=== PATIENT | female | born 2000 | race Caucasian/White ===

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

== ENCOUNTER → 2020-05-19 | Outpatient (REF) | payer OTHER ==
[~2020-05-19] MED LIST changes: +EPIP0.3I2 IM
[2020-06-19 14:51] LABS: CHLAMYDIA DNA AMPLIFICATION NEGATIVE (NEGATIVE); GC DNA AMPLIFICATION NEGATIVE (NEGATIVE)
== END ==
LOC: M SFHCWAGY 13:19
PROVIDERS: ATTEND Advanced Practice Midwife
DX: Z34.01 Encounter for supervision of normal first pregnancy, first trimester (principal)

== ENCOUNTER → 2020-06-03 | Outpatient (CLI) | payer OTHER | LOC: M PLALAB 11:27 | PROVIDERS: ATTEND Specialist | DX: Z13.79 Encounter for other screening for genetic and chromosomal anomalies (principal) ==

== ENCOUNTER → 2020-06-25 | Outpatient (CLI) | payer OTHER ==
--- NOTE | 2020-07-01 09:38 | REP ---
COMPLETE OBSTETRICAL ULTRASOUND: FINDINGS: Ultrasound examination demonstrates a single live intrauterine in cephalic presentation. Placenta noted anteriorly and grade 1 without placenta previa or abruption. Amniotic fluid volume is normal. The cervix measures 3.5 cm in length and appears closed. No evidence for a nuchal cord. Gestational age by current measurements is 20 weeks 2 days with estimated date of delivery of 11/10/20. heart rate is 140 beats per minute. Estimated weight is 350 grams (75th percentile). Anatomical assessment demonstrate normal cranium, ventricles, choroid plexus, cerebellum, posterior fossa, cisterna magna, facial features, four chamber heart/ventricular outflow tracts, diaphragm, abdominal wall, kidneys, bladder, spine extremities and three vessel cord. Limited evaluation of the stomach. IMPRESSION: Single live intrauterine in cephalic presentation demonstrating appropriate estimated weight. Limited evaluation of the stomach noted. The remainder of the anatomical assessment is complete and normal. MTDD
== END ==
LOC: M WHC 13:46
PROVIDERS: ATTEND Specialist
DX: Z34.82 Encounter for supervision of other normal pregnancy, second trimester (principal); Z3A.20 20 weeks gestation of pregnancy

== ENCOUNTER → 2020-07-15 | Outpatient (CLI) | payer OTHER | LOC: M WHC 14:23 | PROVIDERS: ATTEND Obstetrics & Gynecology | DX: Z3A.22 22 weeks gestation of pregnancy (principal); Z53.9 Procedure and treatment not carried out, unspecified reason ==

== ENCOUNTER → 2020-07-21 | Outpatient (CLI) | payer OTHER ==
--- NOTE | 2020-07-21 15:53 | REP ---
INDICATION: F/U ANATOMY-STOMACH COMPARISON: 06/25/2020 TECHNIQUE: Transabdominal obstetrical ultrasound with color Doppler evaluation. FINDINGS: Examination demonstrates a single live intrauterine in cephalic presentation. motion is identified by technologist. Placenta is noted anterior and grade 1 without evidence for placenta previa or abruption. Amniotic fluid volume is normal. Cervix measures 4.3 cm in length and appears closed. No evidence for nuchal cord. Gestational age by LMP 23 weeks 4 days with KELLIE 11/13/2020. Gestational age by current measurements 23 weeks 3 days with KELLIE 11/14/2020. FHR equals 149 beats per minute. Estimated weight 589 grams (32ndpercentile). Anatomical assessment demonstrates normal structures including cranium, facial profile, heart/ventricular outflow tracts, stomach, abdominal wall, kidneys/bladder and three-vessel cord. IMPRESSION: Single live intrauterine in cephalic presentation demonstrating appropriate interval growth. In conjunction with prior examination anatomical assessment is complete and normal. <Electronically signed by Ke Hopper > 07/21/20 [id number]
== END ==
LOC: M PLAIMG 14:28
PROVIDERS: ATTEND Obstetrics & Gynecology
DX: Z3A.22 22 weeks gestation of pregnancy (principal)

== ENCOUNTER → 2020-08-21 | Outpatient (REF) | payer OTHER ==
[2020-08-21 17:07] LABS: HEMATOCRIT 36.5 % (36.0-47.0); HEMOGLOBIN 12.2 g/dl (12.0-15.5); MEAN CORPUSCULAR HGB CONC 33.4 g/dl (32.0-36.5); MEAN CORPUSCULAR VOLUME 92.9 fl (80.0-96.0); PLATELET COUNT, AUTOMATED 315 10^3/uL (150-450); RED BLOOD COUNT 3.93 10^6/uL (4.00-5.40); WHITE BLOOD COUNT 13.6 10^3/uL (4.0-10.0)
== END ==
LOC: M PLALAB 13:55
PROVIDERS: ATTEND Obstetrics & Gynecology
DX: Z34.92 Encounter for supervision of normal pregnancy, unspecified, second trimester (principal); Z3A.22 22 weeks gestation of pregnancy
CPT/HCPCS: 36415; 82950; 85027; 86850; 86900; 86901; J2790

== ENCOUNTER → 2020-09-22 | Outpatient (CLI) | payer OTHER | LOC: M WHC 13:42 | PROVIDERS: ATTEND Advanced Practice Midwife | DX: Z36.89 Encounter for other specified antenatal screening (principal) ==

== ENCOUNTER → 2020-09-29 | Outpatient (CLI) | payer OTHER ==
--- NOTE | 2020-09-29 13:24 | REP ---
INDICATION: MEASURE SIZE>DATES,GROWTH COMPARISON: 07/21/2020 TECHNIQUE: Transabdominal obstetrical ultrasound with color Doppler evaluation. FINDINGS: Examination demonstrates a single live intrauterine in cephalic presentation. motion is identified by technologist. Placenta is noted anterior and grade 2 without evidence for placenta previa or abruption. Amniotic fluid volume is normal. Cervix measures 3.0 cm in length and appears closed.. Gestational age by LMP 33 weeks 4 days with KELLIE 11/13/2020. Gestational age by current measurements 33 weeks 4 days with KELLIE 11/13/2020. FHR equals 144 beats per minute. BPD: 8.6 cm 34 weeks 4 days HC: 30.2 cm 33 weeks 4 days AC: 29.0 cm 33 weeks 0 days FL: 6.5 cm 33 weeks 3 days HL: 5.8 cm 33 weeks 4 days HC/AC: 1.04 Estimated weight 2168 grams (34thpercentile). IMPRESSION: Single live intrauterine in cephalic presentation demonstrating appropriate estimated weight and growth. <Electronically signed by Ke Hopper > 09/29/20 [id number]
== END ==
LOC: M WHC 12:40
PROVIDERS: ATTEND Obstetrics & Gynecology
DX: Z34.93 Encounter for supervision of normal pregnancy, unspecified, third trimester (principal)

== ENCOUNTER → 2020-10-14 | Outpatient (REF) | payer OTHER | LOC: M SFHCWAGY 17:18 | PROVIDERS: ATTEND Advanced Practice Midwife | DX: Z36.85 Encounter for antenatal screening for Streptococcus B (principal); Z3A.35 35 weeks gestation of pregnancy ==

== ENCOUNTER 2020-11-18 11:17 | Inpatient (IN) | payer OTHER ==
[~2020-11-18] VITALS: Ht 165.1 cm; Wt 115.0 kg
[2020-11-18] VITALS (13 sets, daily range): BP systolic 118–156; BP diastolic 60–92
--- OUTSIDE RECORDS SUMMARY | 2020-11-18 11:22 | CCD ---
Author Author [facility] Organization [facility] Address Unknown Phone Unavailable Care Team Providers Care Molding Utility Worker Name Role Phone Osmany Matos Unavailable PROBLEMS Type Condition ICD9-CM Code [id number] Code Onset Dates Condition S tatus W/U Status Risk SNOMED Code Notes Problem Obesity E66.9 Active confirmed 722490135 Problem Obesity complicating in third trimester O99.213 Active confirmed Problem Supervision of other normal Z34.80 Ac tive confirm 724149988 Problem Obesity complicating in second trimester O99.212 Active confirmed 320191821883 Problem GERD (gastroesophageal reflux disease) K21.9 A ctive confirmed 098225539 ALLERGIES Allergen (clinical drug ingredient) Drug/Non Drug Allergy do cumented on EMR Reaction Allergy Type Onset Date Status Tree nuts Unknown Non Drug Allergy Active Seasonal Unknown Non Drug Allergy Active ENCOUNTERS from 2000 to 2020-11-14 Encounter Location Date Provider Diagnosis [facility] [address] [place] [id number] Nov, Osmany Matos 38 weeks gestation o f Z3A.38 and Obesity affecting in third trimester O99.213 IMMUNIZATIONS Vaccine Route Administration Date Status RHo (D) Immune Globulin 300mcg/1.5mL (RhoGAM) IM Intramuscular D ec 2019 Administered TDAP 0.5mL (Boostrix) IM Intramuscular Sep 22, 2020 Administe red SOCIAL HISTORY Tobacco Use: Social History Observation Description Date Details (start date - stop date) Former Smoker Sex Assigned At : Social History Observation Description Sex Assigned At Unknown Domestic Violence: Question Answer Notes Status: No history of abuse Tobacco Use: Question Answer Notes Are you a: former smoker REASON FOR REFERRAL No Information VITAL SIGNS Weight 254.0 lbs Nov, Weight-kg 115.21 kg Nov, Height 65 in Nov, BMI 42.268 kg/m2 Nov, Blood pressure systolic 118 mm Hg Nov, Blood pressure diastolic 72 mm Hg Nov, MEDICATIONS Medication SIG (Take, Route, Frequency, Duration) Notes Start Da te End Date Status 27-1 MG 1 tablet Orally Once a day Active Omeprazole 40 MG 1 capsule 30 minutes before morning meal Orally Once a day for 30 day(s) Jul, Active PROCEDURES No Information RESULTS No Results REASON FOR VISIT 1WK PN MEDICAL (GENERAL) HISTORY Type Description Date Medical History asthma Medical History anxiety Medical History depression Surgical History wisdom teeth Hospitalization History pneumonia Goals Section No Information Health Concerns No Information MEDICAL EQUIPMENT No Information MENTAL STATUS No Information FUNCTIONAL STATUS No Information ASSESSMENTS Encounter Date Diagnosis Assessment Notes Treatment Notes Treatm ent Clinical Notes Nov, 38 weeks gestation of (ICD-10 - Z3A.38 ) Nov, Obesity affecting in [facility] (ICD-10 - O99.213) PLAN OF TREATMENT No Information Insurance Providers Payer Name Payer Address Payer Phone Insured Name Patient Relati onship to Insured Coverage Start Date Coverage End Date [facility]AN [facility] [address] [facility] [phone] [phone] AMANDA BOUCHER self
--- OUTSIDE RECORDS SUMMARY | 2020-11-18 11:23 | CCD ---
Author Author [facility] Organization [facility] Address Unknown Phone Unavailable Care Team Providers Care Core Java Engineer Name Role Phone Katharine Bennett Unavailable PROBLEMS Type Condition ICD9-CM Code [id number] Code Onset Dates Condition S tatus SNOMED Code Notes Problem GERD (gastroesophageal reflux disease) K21.9 A ctive 176973534 Problem Obesity E66.9 Active 065876399 Problem Supervision of other normal Z34.80 Ac tive 920752104 Problem Obesity complicating in second trimester O99.212 Active 342880481976 ALLERGIES Allergen (clinical drug ingredient) Drug/Non Drug Allergy do cumented on EMR Reaction Allergy Type Onset Date Status Tree nuts Unknown Non Drug Allergy Active Seasonal Unknown Non Drug Allergy Active ENCOUNTERS from 2000 to 2020-08-25 Encounter Location Date Provider Diagnosis [facility] [place] [address] Aug, Katharine Rosariocatalino Obesity complicat ing in second trimester O99.212 and 26 weeks gestation of Z3A.26 IMMUNIZATIONS No Information SOCIAL HISTORY Tobacco Use: Social History Observation Description Date Details (start date - stop date) Current Smoker Sex Assigned At : Social History Observation Description Sex Assigned At Unknown Domestic Violence: Question Answer Notes Status: No history of abuse Tobacco Use: Question Answer Notes Are you a: current smoker How many cigarettes a day do you smoke? 5 or less REASON FOR REFERRAL No Information VITAL SIGNS Weight 230 lbs Aug, Weight-kg 104.33 kg Aug, Height 65 in Aug, BMI 38.274 kg/m2 Aug, Blood pressure systolic 102 mm Hg Aug, Blood pressure diastolic 72 mm Hg 11 Aug, 2020 MEDICATIONS Medication SIG (Take, Route, Frequency, Duration) Notes Start Da te End Date Status 27-1 MG 1 tablet Orally Once a day Active Omeprazole 40 MG 1 capsule 30 minutes before morning meal Orally Once a day for 30 day(s) Jul, Active PROCEDURES No Information RESULTS No Results REASON FOR VISIT 4 WK PN MEDICAL (GENERAL) HISTORY Type Description Date Medical History asthma Medical History anxiety Medical History depression Surgical History wisdom teeth Hospitalization History pneumonia Goals Section No Information Health Concerns No Information MEDICAL EQUIPMENT No Information MENTAL STATUS No Information FUNCTIONAL STATUS No Information ASSESSMENTS Encounter Date Diagnosis Assessment Notes Treatment Notes Treatm ent Clinical Notes Aug, Obesity complicating pregnan cy in second trimester (ICD-10 - O99.212) Aug, 26 weeks gestation of (ICD-10 - Z3A.26 ) PLAN OF TREATMENT Next Appt Details 3-4wks Reason:return ob Provider Name:Katharine Bennett, 2020-09-10 02:40:00 PM, [address] [place], [address], Follow Up:3-4wksreturn ob Insurance Providers Payer Name Payer Address Payer Phone Insured Name Patient Relati onship to Insured Coverage Start Date Coverage End Date [facility] PLAN [facility] [address] [facility] [phone] [phone] AMANDA BOUCHER self
--- OUTSIDE RECORDS SUMMARY | 2020-11-18 11:23 | CCD ---
Author Author [facility] Organization [facility] Address Unknown Phone Unavailable Care Team Providers Care Copy Lathe Tender Name Role Phone Katharine Bennett Unavailable PROBLEMS Type Condition ICD9-CM Code [id number] Code Onset Dates Condition S tatus SNOMED Code Notes Problem GERD (gastroesophageal reflux disease) K21.9 A ctive 290770315 Problem Obesity E66.9 Active 785429404 Problem Supervision of other normal Z34.80 Ac tive 972458281 Problem Obesity complicating in second trimester O99.212 Active 636792250874 ALLERGIES Allergen (clinical drug ingredient) Drug/Non Drug Allergy do cumented on EMR Reaction Allergy Type Onset Date Status Tree nuts Unknown Non Drug Allergy Active Seasonal Unknown Non Drug Allergy Active ENCOUNTERS from 2000 to 2020-09-15 Encounter Location Date Provider Diagnosis [facility] [place] [address] Sep, Katharine Bennett 30 weeks gestatio n of Z3A.30 and Maternal care for anti-D [Rh] antibodies, third trimester, fetus 1 O36.0131 IMMUNIZATIONS Vaccine Route Administration Date Status RHo (D) Immune Globulin 300mcg/1.5mL (RhoGAM) IM Intramuscular D ec 2019 Administered SOCIAL HISTORY Tobacco Use: Social History Observation [...] FOR REFERRAL No Information VITAL SIGNS Weight 236.6 lbs Sep, Weight-kg 107.32 kg Sep, Height 65 in Sep, BMI 39.372 kg/m2 Sep, Blood pressure systolic 108 mm Hg Sep, Blood pressure diastolic 68 mm Hg Sep, MEDICATIONS Medication SIG (Take, Route, Frequency, Duration) Notes Start Da te End Date Status 27-1 MG 1 tablet Orally Once a day Active Omeprazole 40 MG 1 capsule 30 minutes before morning meal Orally Once a day for 30 day(s) Jul, Active PROCEDURES from 2000 to 2020-09-15 Procedure Date Ordered Result Body Site Injection: RhoGAM 300mcg/1.5mL IM (Rho [D] Immune Globulin H uman) 2020-09-10 N/A RESULTS No Results REASON FOR VISIT 4wk pn MEDICAL (GENERAL) HISTORY Type Description Date Medical History asthma Medical History anxiety Medical History depression Surgical History wisdom teeth Hospitalization History pneumonia Goals Section No Information Health Concerns No Information MEDICAL EQUIPMENT No Information MENTAL STATUS No Information FUNCTIONAL STATUS No Information ASSESSMENTS Encounter Date Diagnosis Assessment Notes Treatment Notes Treatm ent Clinical Notes Sep, 30 weeks gestation of (ICD-10 - Z3A.30 ) Sep, Maternal care for anti-D [Rh ] antibodies, third trimester, fetus 1 (ICD-10 - O36.0131) PLAN OF TREATMENT Next Appt Details 2 Weeks Reason:return ob Provider Name:Nanda Lau, 2020-09-22 0 1:20:00 PM, [facility] [place], [address], Follow Up:2 Weeksreturn ob Insurance Providers Payer Name Payer Address Payer Phone Insured Name Patient Relati onship to Insured Coverage Start Date Coverage End Date [facility]AN [facility] [address] [facility] [phone] AMANDA BOUCHER self
--- OUTSIDE RECORDS SUMMARY | 2020-11-18 11:23 | CCD ---
Author Author [facility] Organization [facility] Address Unknown Phone Unavailable Care Team Providers Care Blower Installer Name Role Phone Katharine Bennett Unavailable PROBLEMS Type Condition ICD9-CM Code QAM85-UP Code Onset Dates Condition S tatus W/U Status Risk SNOMED Code Notes Problem Obesity E66.9 Active confirmed 887880113 Problem Obesity complicating in third trimester O99.213 Active confirmed Problem Supervision of other normal Z34.80 Ac tive confirm 065066515 Problem Obesity complicating in second trimester O99.212 Active confirmed 234786185620 Problem GERD (gastroesophageal reflux disease) K21.9 A ctive confirmed 435458447 ALLERGIES Allergen (clinical drug ingredient) Drug/Non Drug Allergy do cumented on EMR Reaction Allergy Type Onset Date Status Tree nuts Unknown Non Drug Allergy Active Seasonal Unknown Non Drug Allergy Active ENCOUNTERS from 2000 to 2020-11-13 Encounter Location Date Provider Diagnosis [facility] [address] [place] [address] Nov, Katharine Bennett IMMUNIZATIONS Vaccine Route Administration Date Status RHo [...] REASON FOR REFERRAL No Information VITAL SIGNS No information MEDICATIONS Medication SIG (Take, Route, Frequency, Duration) Notes Start Da te End Date Status 27-1 MG 1 tablet Orally Once a day Active Omeprazole 40 MG 1 capsule 30 minutes before morning meal Orally Once a day for 30 day(s) Jul, Active PROCEDURES No Information RESULTS No Results REASON FOR VISIT IOL MEDICAL (GENERAL) HISTORY Type Description Date Medical History asthma Medical History anxiety Medical History depression Surgical History wisdom teeth Hospitalization History pneumonia Goals Section No Information Health Concerns No Information MEDICAL EQUIPMENT No Information MENTAL STATUS No Information FUNCTIONAL STATUS No Information ASSESSMENTS No Information PLAN OF TREATMENT No Information Insurance Providers Payer Name Payer Address Payer Phone Insured Name Patient Relati onship to Insured Coverage Start Date Coverage End Date [facility] PLAN [facility] [address] [facility] [phone] AMANDA BOUCHER self
--- OUTSIDE RECORDS SUMMARY | 2020-11-18 11:23 | CCD ---
Author Author [facility] Organization [facility] Address Unknown Phone Unavailable Support Name Relationship Address Phone Juve Vipul Next Of Kin Unknown Unavailable JUVE CHEEMA Next Of Kin [address] [place] [address] UN Next Of Kin Unknown Unavailable MAGDALENA SANFORD Next Of Kin [address] [place] [address] Mathieu BOUCHER Next Of Kin [address] [place] [address] Bandar PNP-CSuze Next Of Kin [address] [place], [place] [phone] Diana Varner Next Of Kin [address] [place] [address] KWASI MUNOZ Next Of Kin [address] [place] [address] NAYELY BOUCHER Next Of Kin [address] [place] [address] UE Next Of Kin Unknown Unavailable TJ BOUCHER Next Of Kin [address] [place] [address] Bandar JEROME-CMilvia Next Of Kin [address] [place], [place] [id number] KATYA Ricks, Diana Next Of Kin [address] [place] [address] Paulette Billings MD Next Of Kin [address] [place] [address] AMANDA BOUCHER Next Of Kin [address] [place] [address] JULIA MORGAN Next Of Kin [address] [facility] [address] [place] [address] CELL NONE, PT PER Next Of Kin = =, - - - Mathieu CAGE Next Of Kin [address] [place] [address] Next Of Kin Unknown Unavailable ARABELLA SANFORD Next Of Kin [address] [place] [address] JAMILACHAMP CASTELLON Next Of Kin [address] [place] [address] [address]UVE [address] [address] Care Team Providers Care Job Press Feeder Name Role Phone NON, PHYSICIAN STAFF Unavailable Unavailable TURRIN, ARTURO Unavailable Unavailable TURRIN, ARTURO Unavailable Unavailable TURRIN, ARTURO Unavailable Unavailable TURRIN, ARTURO Unavailable Unavailable Veley, Celestina FISHER OYSTER Unavailable Unavailable Veley, Celestina FISHER OYSTER Unavailable Unavailable Veley, Celestina FISHER OYSTER Unavailable Unavailable Veley, Celestina FISHER OYSTER Unavailable Unavailable Veley, Celestina FISHER OYSTER Unavailable Unavailable Veley, Celestina FISHER OYSTER Unavailable Unavailable Veley, Celestina FISHER OYSTER Unavailable Unavailable Veley, Celestina FISHER OYSTER Unavailable Unavailable Veley, Celestina FISHER OYSTER Unavailable Unavailable Veley, Celestina FISHER OYSTER Unavailable Unavailable Veley, Celestina FISHER OYSTER Unavailable Unavailable Veley, Celestina FISHER OYSTER Unavailable Unavailable Veley, Celestina FISHER OYSTER Unavailable Unavailable Veley, Celestina FISHER OYSTER Unavailable Unavailable Veley, Celestina FISHER OYSTER Unavailable Unavailable Veley, Celestina FISHER OYSTER Unavailable Unavailable Veley, Celestina FISHER OYSTER Unavailable Unavailable Veley, Celestina FISHER OYSTER Unavailable Unavailable Veley, Celestina FISHER OYSTER Unavailable Unavailable Veley, Celestina FISHER OYSTER Unavailable Unavailable Veley, Celestina FISHER OYSTER Unavailable Unavailable Veley, Celestina FISHER OYSTER Unavailable Unavailable Veley, Celestina FISHER OYSTER Unavailable Unavailable Veley, Celestina FISHER OYSTER Unavailable Unavailable Veley, Celestina FISHER OYSTER Unavailable Unavailable Veley, Celestina FISHER OYSTER Unavailable Unavailable Veley, Celestina FISHER OYSTER Unavailable Unavailable Veley, Celestina FISHER OYSTER Unavailable Unavailable Veley, Celestina FISHER OYSTER Unavailable Unavailable Veley, Celestina FISHER OYSTER Unavailable Unavailable Veley, Celestina FISHER OYSTER Unavailable Unavailable Re-disclosure Warning The records that you are about to access may contain information from federally-assisted alcohol or drug abuse programs. If such information is present, then the following federally mandated warning applies: This information has been disclosed to you from records protected by federal confidentiality rules (42 CFR part 2). The federal rules prohibit you from making any further disclosure of this information unless further disclosure is expressly permitted by the written consent of the person to whom it pertains or as otherwise permitted by 42 CFR part 2. A general authorization for the release of medical or other information is NOT sufficient for this purpose. The Federal rules restrict any use of the information to criminally investigate or prosecute any alcohol or drug abuse patient.The records that you are about to access may contain highly sensitive health information, the redisclosure of which is protected by Article 27-F of the [facility] Public Health law. If you continue you may have access to information: Regarding HIV / AIDS; Provided by facilities licensed or operated by the [facility] Office of Mental Health; or Provided by the [facility] Office for People With Developmental Disabilities. If such information is present, then the following [facility] mandated warning applies: This information has been disclosed to you from confidential records which are protected by state law. State law prohibits you from making any further disclosure of this information without the specific written consent of the person to whom it pertains, or as otherwise permitted by law. Any unauthorized further disclosure in violation of state law may result in a fine or residential sentence or both. A general authorization for the release of medical or other information is NOT sufficient authorization for further disc losure. Family History Family Member Name Family Member Gender Family Member Status Date o f Status Description Data Source(s) Unknown Condition [facility] Unknown Condition [facility] Hospital Unknown Condition [facility] Encounters Encounter Providers Location Date Indications Data Source(s ) Unknown [address] [facility] [address] 11/13/2020 12:00:00 AM EST eCW1 ([facility]) ( ESTOB) [facility] [address] [place] [address] 11/06/2020 12:00:00 AM EST eCW1 ([facility]) ( ESTOB) [facility] [address] [place] [address] 10/28/2020 12:00:00 AM EST eCW1 [facility]) ([facility]) [facility] [address] [place] [address] 10/22/2020 12:00:00 AM EST eCW1 ([facility]) (WC ESTOB) [facility] [address] [place] [address] 10/14/2020 12:00:00 AM EST eCW1 ([facility]) (WC ESTOB) [facility] [address] [place] [address] 09/22/2020 12:00:00 AM EST eCW1 ([facility]) ( ESTOB) [facility] [address] [place] [address] 09/10/2020 12:00:00 AM EST eCW1 ([facility]) ( ESTOB) [facility] [address] [place] [address] 08/12/2020 12:00:00 AM EST eCW1 ([facility]) ( ESTOB) enter Est OB [address] [place] [address] 07/15/2020 12:00:00 AM EDT eCW1 ([facility]) Outpatient Attender: Celestina ROCKWELL 05/07/2020 12:02:0 3 AM EDT [facility] ( ESTOB) [facility] Est OB [address] [place] [address] 04/21/2020 12:00:00 AM EDT eCW1 ([facility]) Emergency Attender: ARTURO [place]: STAFF NON 11/06/2019 06:33:00 AM EST - 11/06/2019 07:03:00 AM EST [facility] Patient discharged. Immunizations Vaccine Date Status Description Data Source(s) Tdap 09/22/2020 01:48:00 PM EST completed e CW1 ([facility]) Tdap 09/22/2020 01:48:00 PM EST completed e CW1 ([facility]) Tdap 09/22/2020 01:48:00 PM EST completed e CW1 ([facility]) Tdap 09/22/2020 01:48:00 PM EST completed e CW1 ([facility]) Tdap 09/22/2020 01:48:00 PM EST completed e CW1 ([facility]) Tdap 09/22/2020 01:48:00 PM EST completed e CW1 ([facility]) RHo (D) Immune Globulin 300mcg/1.5mL (RhoGAM) 09/10/2020 04: 01:00 PM EST completed eCW1 ([facility]) RHo (D) Immune Globulin 300mcg/1.5mL (RhoGAM) 09/10/2020 04: 01:00 PM EST completed eCW1 ([facility]) RHo (D) Immune Globulin 300mcg/1.5mL (RhoGAM) 09/10/2020 04: 01:00 PM EST completed eCW1 ([facility]) RHo (D) Immune Globulin 300mcg/1.5mL (RhoGAM) 09/10/2020 04: 01:00 PM EST completed eCW1 ([facility]) RHo (D) Immune Globulin 300mcg/1.5mL (RhoGAM) 09/10/2020 04: 01:00 PM EST completed eCW1 ([facility]) RHo (D) Immune Globulin 300mcg/1.5mL (RhoGAM) 09/10/2020 04: 01:00 PM EST completed eCW1 ([facility]) RHo (D) Immune Globulin 300mcg/1.5mL (RhoGAM) 09/10/2020 04: 01:00 PM EST completed eCW1 ([facility]) Medications Medication Brand Name Start Date Product Form Dose Route Admi nistrative Instructions Pharmacy Instructions Status Indications Reaction Description Data Source(s) Omeprazole 40 MG Delayed Release Oral Capsule Omeprazole 40 MG 07/15/2020 12:00:00 AM EDT active Omeprazo le 40 MG eCW1 ([facility]) Omeprazole 40 MG Delayed Release Oral Capsule Omeprazole 40 MG 07/15/2020 12:00:00 AM EDT active Omeprazo le 40 MG eCW1 ([facility]) Omeprazole 40 MG Delayed Release Oral Capsule Omeprazole 40 MG 07/15/2020 12:00:00 AM EDT active Omeprazo le 40 MG eCW1 ([facility]) Omeprazole 40 MG Delayed Release Oral Capsule Omeprazole 40 MG 07/15/2020 12:00:00 AM EDT active Omeprazo le 40 MG eCW1 ([facility]) Omeprazole 40 MG Delayed Release Oral Capsule Omeprazole 40 MG 07/15/2020 12:00:00 AM EDT active Omeprazo le 40 MG eCW1 ([facility]) Omeprazole 40 MG Delayed Release Oral Capsule Omeprazole 40 MG 07/15/2020 12:00:00 AM EDT active Omeprazo le 40 MG eCW1 ([facility]) Omeprazole 40 MG Delayed Release Oral Capsule Omeprazole 40 MG 07/15/2020 12:00:00 AM EDT active Omeprazo le 40 MG eCW1 ([facility]) Omeprazole 40 MG Delayed Release Oral Capsule Omeprazole 40 MG 07/15/2020 12:00:00 AM EDT active Omeprazo le 40 MG eCW1 ([facility]) Omeprazole 40 MG Delayed Release Oral Capsule Omeprazole 40 MG 07/15/2020 12:00:00 AM EDT active Omeprazo le 40 MG eCW1 ([facility]) Omeprazole 40 MG Delayed Release Oral Capsule Omeprazole 40 MG 07/15/2020 12:00:00 AM EDT active Omeprazo le 40 MG eCW1 ([facility]) Insurance Providers Payer name Policy type / Coverage type Policy ID Covered green party ID Covered green party's relationship to barroso Policy [place] Plan Information [id number] SP [id number] [facility](MCAID) O [id number] S [id number] Managed Care - [facility] P [id number] S [id number] Medicaid S [id number] S [id number] [employer] COMMUNITY PLAN XIX [id number] 18 [id number] MEDICAID -O/P EMERGENCY ROOM [id number] [facility] MEDICAID [id number] S [id number] [facility] [id number] S [id number] UNITED HEALTHCARE UNAVAILABLE S UNAVAILABLE [facility] [id number] S [id number] Managed Care - [facility] P [id number] S [id number] Medicaid S [id number] S [id number] [place] [id number] Commercial Insur ance Co. [id number] Medicaid [id number] Medicaid [id number] BCBS [id number] Blue Cross/Blue Shield [id number] [facility] [id number] Preferred Provider Organization (PPO) [id number] [facility] COMMUNITY PLAN [facility] [id number] MEDICAID [id number] SP [id number] Managed Care - [facility] P UNAVAILABLE S UNAVAILABLE Medicaid P [id number] S [id number] NABIL [id number] SP [id number] MEDICAID -PHYSICIAN [id number] 8 [id number] [place] Medicaid/CHP/FHP Medigap Part B [id number] Self [id number] BS [facility] Hmo Blue Option Commercial [id number] Self [id number] Medicaid [place] Medigap Part B [id number] Self [id number] [place] Medicaid/CHP/FHP Medigap Part B [id number] Self [id number] BS [facility] Hmo Blue Option Commercial [id number] Self [id number] Managed Care Nabil P [id number] S [id number] Managed Care [place] P [id number] S [id number] [place] O [id number] S [id number] MEDICAID M [id number] Medicaid P [id number] S [id number] Managed Care [place] P [id number] S [id number] Medicaid S [id number] S [id number] MEDICAID [id number] SP [id number] Managed Care [place] P [id number] S [id number] Medicaid S [id number] S [id number] Managed Care BCBS S [id number] S [id number] Managed Care [facility] S [id number] S [id number] Problems, Conditions, and Diagnoses Code Display Name Description Problem Type Effective Dates Data Source(s) O99.213 Obesity complicating , third tr imester Obesity complicating in third trimester Problem 09/22/2020 12:00:00 AM EST eCW1 ([facility]) K21.9 Gastroesophageal reflux disease GERD (gastroesop hageal reflux disease) Problem 07/15/2020 12:00:00 AM EDT eCW1 ([facility]) O99.212 Maternal obesity complicatin g , childbirth and the puerperium, antepartum Obesity complicating in second trimester Problem 07/15/2020 12:00:00 AM EDT eCW1 ([facility]) E66.9 Obesity Obesity Problem 07/15/2020 12:00:00 AM ED T eCW1 ([facility]) Z34.80 care Supervision of other normal P kiaralemathieu 04/21/2020 12:00:00 AM EDT eCW1 ([facility]) [id number] Nicotine dependence, unspecified, uncomp licated Nicotine dependence, unspecified, uncomplicated Diagnosis 11/06/2019 06:33:00 AM [facility] [id number] Unspecified asthma, uncomplicated Unspecified as thma, uncomplicated Diagnosis 11/06/2019 06:33:00 AM [facility] [id number] Acute suppurative otitis med ia without spontaneous rupture of ear drum, right ear Acute suppurative otitis media without s pontaneous rupture of ear drum, right ear Diagnosis 11/06/2019 06:33:00 AM [facility] [id number] Otalgia, right ear Otalgia, right ear Diagnosis 01/2020 06:33:00 AM [facility] Surgeries/Procedures Procedure Description Date Indications Data Source(s) Immunization: Boostrix 0.5mL IM (TDAP) 09/22/2020 12:0 0:00 AM EST eCW1 ([facility]) Injection: RhoGAM 300mcg/1.5mL IM (Rho [D] Immune Globulin H uman) 09/10/2020 12:00:00 AM EST eCW1 ([facility]) Results ID Date Data Source RHOGAM 08/21/2020 12:00:00 AM EST eCW1 ([facility]) Name Value Range Interpretation Code Description Data Eve rce(s) Supporting Document(s) TRANSFUSED PRODUCT: RHOGAM CO UNT: 1 RHOGAM eCW1 ([facility]) ID Date Data Source Glucose Challenge Test 1 Hour 08/21/2020 12:00:00 AM EST eCW 1 ([facility]) Name Value Range Interpretation Code Description Data Eve rce(s) Supporting Document(s) 107 LESS THAN 140 GLUCOSE CHALLENGE TEST 1 HOUR eCW1 ([facility]) ID Date Data Source CBC - Complete Blood Count 08/21/2020 12:00:00 AM EST eCW1 ( [facility]) Name Value Range Interpretation Code Description Data Eve rce(s) Supporting Document(s) 13.6 4.0-10.0 WHITE BLOOD COUNT eCW1 ([facility]) 36.5 36.0-47.0 HEMATOCRIT eCW1 ([facility]) 92.9 80.0-96.0 MEAN CORPUSCULAR VOLUME e CW1 ([facility]) 12.2 12.0-15.5 HEMOGLOBIN eCW1 ([facility]) 3.93 4.00-5.40 RED BLOOD COUNT eCW1 ([facility]) 315 150-450 PLATELET COUNT, AUTOMATED eCW1 ([facility]) 31.0 27.0-33.0 MEAN CORPUSCULAR HEMOGLOB IN eCW1 ([facility]) 33.4 32.0-36.5 MEAN CORPUSCULAR HGB CONC eCW1 ([facility]) 12.1 11.5-14.5 RED CELL DISTRIBUTION WID TH eCW1 ([facility]) ID Date Data Source Type and Screen (D Rh Antibody Screen) 08/21/2020 12:00:00 A M EST eCW1 ([facility]) Name Value Range Interpretation Code Description Data Eve rce(s) Supporting Document(s) A NEGATIVE BLOOD TYPE eCW1 ([facility]) NEGATIVE AB SCREEN (INDIRECT COOMB S)VIS eCW1 ([facility]) ID Date Data Source WWBC OBS FOLLOW UP OR REPEAT 07/21/2020 12:00:00 AM EDT eCW1 ([facility]) Name Value Range Interpretation Code Description Data Eve rce(s) Supporting Document(s) WWBC OBS FOLLOW UP OR REPEAT e CW1 ([facility]) ID Date Data Source Type and Screen Prenatal1 04/22/2020 05:34:23 AM EDT eCW1 ([facility]) Name Value Range Interpretation Code Description Data Eve rce(s) Supporting Document(s) NEGATIVE eCW1 ([facility]) ID Date Data Source HBSAG 04/22/2020 05:34:19 AM EDT eCW1 ([facility]) Name Value Range Interpretation Code Description Data Eve rce(s) Supporting Document(s) NEGATIVE eCW1 ([facility]) ID Date Data Source HEPATITIS C ANTIBODY INDEX 04/22/2020 05:34:16 AM EDT eCW1 ( [facility]) Name Value Range Interpretation Code Description Data Eve rce(s) Supporting Document(s) 0.1 eCW1 ([facility]) ID Date Data Source RUBELLA IMMUNE STATUS IgG 04/22/2020 05:34:13 AM EDT eCW1 ([facility]) Name Value Range Interpretation Code Description Data Eve rce(s) Supporting Document(s) IMMUNE eCW1 ([facility]) ID Date Data Source SYPHILIS ANTIBODY (RPR SCREEN) 04/22/2020 05:33:56 AM EDT eC W1 ([facility]) Name Value Range Interpretation Code Description Data Eve rce(s) Supporting Document(s) NONREACTIVE eCW1 ([facility]) ID Date Data Source [id number] 04/22/2020 05:33:45 AM EDT eCW1 ([facility]) Name Value Range Interpretation Code Description Data Eve rce(s) Supporting Document(s) eCW1 ([facility]) ID Date Data Source [id number] 11/06/2019 06:33:00 AM [facility] 1 OrderSheet [facility] Emergency Department [address] [place] [address] Phone #: ext- [phone] 11/06/2019 06:33 Patient: AMANDA BOUCHER Sex: F : 2000 Age: 19yWEIGHT:79.7 kg HEIGHT:65 inches BMI:29.3ALLERGIES: No Known Drug AllergyCHIEF COMPLAINT: earacheDIAGNOSIS: Otitis mediaLAB ORDERSOrder Description Priority Entered Acknowledged InitialedDIAGNOSTIC STUDY ORDERSOrder Description Priorit y Entered Acknowledged InitialedMEDICATION/IV/DRIP/FLUID ORDERSOrder Description Priority Entered Acknowledged InitialedToradol IM 30 mg 06:45 11/06/2019 06:45 Dorcas Toscano Riccardo Scott R.N. M.D.;cefTRIAXone IM 06:45 11/06/2019 06:46 [place]1000 Arturo Dutton R.N., M.D.;GENERAL ORDERSOrder Description Priority Entered Acknowledged Initialed[Electronically signed by Arturo Toscano M.D. (07:01 11/06/2019)][Electronically signed by Elías Toscano R.N. (07:04 11/06/2019)][Electronically locked by Elías Toscano R.N. (07:04 11/06/2019)] Name Value Range Interpretation Code Description Data Eve rce(s) Supporting Document(s) ID Date Data Source [id number] 11/06/2019 06:33:00 AM [facility] 1 Medication Reconciliation Report [facility] Department [address] [place] [address] Phone #: ext- [phone] 11/06/2019 06:33 Patient: AMANDA BOUCHER Sex: F : 2000 Age: 19yWeight: 79.7 kgHeight/Length: 65 in.BMI: 29.3ALLERGIES: No Known Drug AllergyThe patient's Home Medications are listed below:NONE.The source(s) of the original Home Medication information:Not obtained.The following Medications were given to the patient in the Emergency Department:Toradol [IM] IM 30 mg, administered: 11/06/2019 6:45:00 AMCeftriaxone [IM] IM 1 gm, administered: 11/06/2019 6:45:00 AMThe following Medications were prescribed to the patient:hydrocodone 5 mg-acetaminophen 325 mg tablet Take 1 tablet four times a day as needed for pain for 3days -- Dispense 12 tablet. Refills: 0. Substitution permitted.[facility] [id number] ; [place] [address]. .Augmentin 875 mg-125 mg tablet Take 1 tablet twice a day for 10 days -- Dispense 20 tablet. Refills: 0.Substitution permitted.[facility] [id number] ; [place] [address]. .ibuprofen 600 mg tablet Take 1 tablet four times a day as needed for pain for 7 days -- Dispense 28tablet. Refills: 0. Substitution permitted.[facility] [id number] ; [place] [address]. . -- Arturo Toscano M.D. Name Value Range Interpretation Code Description Data Eve rce(s) Supporting Document(s) ID Date Data Source [id number] 11/06/2019 06:33:00 AM [facility] 1 Medication Administration Record [facility] [address] [place] [address] Phone #: ext- [phone] 11/06/2019 06:33 Patient: AMANDA BOUCHER Sex: F : 2000 Age: 19yWeight: 79.7 kgHeight/Length: 65 inBMI: 29.3ALLERGIES: No Known Drug Allergy Date/Time Medication Administered Medication OrderedGiven TORADOL [IM] (KETOROLAC Toradol IM 30 mg06:45 11/06/2019 TR OMETHAMINE)Elías Toscano R.N. Dose: 30 mg IMGiven CEFTRIAXONE [IM] cefTRIAXone IM 1000 mg06:45 11/06/2019 Dose: 1 gm Elías Garg R.N. Name Value Range Interpretation Code Description Data Eve rce(s) Supporting Document(s) ID Date Data Source [id number] 11/06/2019 06:33:00 AM EST [facility] 1 General Instructions [facility] [address] [place] [address] Phone #: ext- [phone] 11/06/2019 06:33 Patient: AMANDA BOUCHER Sex: F : 2000 Age: 19yAcute suppurative right otitis media. No perforation of right tympanic membrane.INSTRUCTIONSTake Tylenol (Acetaminophen) or Motrin (Ibuprofen) for fever, temperature greater than 102 degrees orally.Take according to label instructions.Drink plenty of fluids. Do not smoke. No alcohol.Warnings: Further evaluation is necessary. It is very important to follow up with a healthcare provider.GENERAL WARNINGS: Return or contact your physician immediately if your condition worsens orchanges unexpectedly, if not improving as expected, or if other problems arise. Specifically return if pain,vomiting, bleeding, breathing difficulty or fever greater than 102 degrees F and not controlled byacetaminophen or ibuprofen worsens.Your Current Medications: .No home medication.Prescription Medications:hydrocodone 5 mg- acetaminophen 325 mg tablet Take 1 tablet four times a day as needed for pain for 3days -- Dispense 12 tablet. Refills: 0. Substitution permitted.[facility] [id number] ; [place] [address]. .Augmentin 875 mg-125 mg tablet Take 1 tablet twice a day for 10 days -- Dispense 20 tablet. Refills: 0.Substitution permitted.[facility] [id number] ; [place] [address]. .ibuprofen 600 mg tablet Take 1 tablet four times a day as needed for pain for 7 days -- Dispense 28tablet. Refills: 0. Substitution permitted.[facility] [id number] ; [place] [address]. .Follow-up:Return to the emergency department as needed. Follow up with your healthcare provider in five dayseven if well. Call for an appointment. Reason for referral: evaluation and treatment. Summary of careprovided to patient via paper. 2 General Instructions [facility] Emergency Department [address] [place] [address] Phone #: ext- [phone] 11/06/2019 06:33 Patient: AMANDA BOUCHER Sex: F : 2000 Age: 19yUnderstanding of the discharge instructions verbalized by patient. Expected course of illness, dischargeinstructions, activity level, diet, prescriptions x3, follow-up appointment and risks and benefits of treatmentreviewed with patient and understanding verbalized. Agrees to plan of care. ADDITIONAL INFORMATIONMiddle Ear Infection (Adult)You have an infection of the middle ear, the space behind the eardrum. This is also called acute otitismedia (AOM). Sometimes it is caused by the common cold. This is because congestion can block theinternal passage (eustachian tube) that drains fluid from the middle ear. When the middle ear fills withfluid, bacteria can grow there and cause an infection. Oral antibiotics are used to treat this illness, notear drops. Symptoms usually start to improve within 1 to 2 days of treatment.Home careThe following are general care guidelines: Finish all of the antibiotic medicine given, even though you may feel better after the first few days. You may use cljy-shm-mlkaexb medicine, such as acetaminophen or ibuprofen, to control pain and fever, unless something else was prescribed. If you have chronic liver or kidney disease or have ever had a stomach ulcer or gastrointestinal bleeding, talk with your healthcare provider before using these medicines. Do not give aspirin to anyone under 18 years of age who has a fever. It may cause severe illness or . 3 General Instructions [facility] Emergency Department [address] [place] [address] Phone #: ext- [phone] 11/06/2019 06:33 Patient: AMANDA BOUCHER Sex: F : 2000 Age: 19yFollow-up careFollow up with your healthcare provider, or as advised, in 2 weeks if all symptoms have not gottenbetter, or if hearing doesn't go back to normal within 1 month.When to seek medical adviceCall your healthcare provider right away if any of these occur: Ear pain gets worse or does not improve after 3 days of treatment Unusual drowsiness or confusion Neck pain, stiff neck, or headache Fluid or blood draining from the ear canal Fever of 100.4F (38C) or as advised Seizure [id number] [employer]. [address] [place] [address], [place] [address]. All rights reserved. This information is not intended as asubstitute for professional medical care. Always follow your healthcare professional's instructions.Fever Control (Adult)A fever is a normal reaction of your body to an illness. The temperature itself usually isn't harmful. Itactually helps your body fight infections. You don't need to treat a fever unless you feel veryuncomfortable.Home careFollow these tips to take care of yourself at home: If you feel warm, check your temperature. Dress in light clothing. This will help you lose extra body heat through your skin. The fever will go up if you wear extra layers or wrap in blankets. Fever causes your body to lose water through evaporation. Drink plenty of fluids. These include water, juice, clear sodas, jenn andrea, or lemonade.Fever medicinesYou can take acetaminophen every 4 to 6 hours if: You feel very uncomfortable 4 General Instructions [facility] Emergency Department [address] [place] [address] Phone #: ext- [phone] 11/06/2019 06:33 Patient: AMANDA BOUCHER Sex: F : 2000 Age: 19y Your oral temperature is 100.4F (38C) or higherIf you can't take or keep down oral medicine, ask your pharmacist for acetaminophen suppositories.You don't need a prescription for these.If the fever doesn't get better within 1 hour after you take acetaminophen, take ibuprofen. If thisworks, keep taking the ibuprofen every 6 to 8 hours.If you have chronic liver or kidney disease, talk with your healthcare provider before taking thesemedicines. Also talk with your provider if you ever had a stomach ulcer or GI (gastrointestinal)bleeding.If either medicine alone doesn't keep the fever down, you may switch off between the 2 medicinesevery 3 to 4 hours. But do this only if your healthcare provider has told you to. For example, takeibuprofen. Wait 3 hours. Then take acetaminophen. Wait 3 hours. Take ibuprofen, and so on. Followyour provider's instructions exactly.Don't give aspirin to anyone younger than age 19 who is ill with a fever. Aspirin can cause seriousside effects such as liver damage and Daya syndrome. Although rare, Daya syndrome is a veryserious illness usually found in children younger than age 15. The syndrome is closely linked to theuse of aspirin or aspirin-containing medicine during viral infection.Follow-up careFollow up with your healthcare provider if you don't get better after 48 hours.When to seek medical adviceCall your healthcare provider right away if any of these occur: Fever, as directed by your healthcare provider, or: o Fever of 100.4F (38C) or above lasting for 24 to 48 hours o Fever lasting more than 3 days, even without other symptoms o Fever that happens after visiting a foreign country o Fever that happens within a month after visiting a country with malaria. Malaria is a serious illness. A fever can still be malaria even if you took medicine to prevent it. The medicine does not work in all cases. Confusion or trouble thinking Headache or stiff neck Flat, small, purplish red spots on your skin 5 General Instructions [facility] Emergency Department [address] [place] [address] Phone #: ext- [phone] 11/06/2019 06:33 -- Patient: AMANDA BOUCHER Sex: F : 2000 Age: 19y Low blood pressure Fast heart rate Fast (rapid) breathing You are You just had surgery, another medical procedure, or were just discharged from the hospital Use of medicines that suppress the immune system (immunosuppressants). These include Prednisone, cancer medicines, and organ transplant rejection medicines. If you are not sure about whether your medicines suppress your immune system, ask your healthcare provider.Call 911Someone should call 911 if you: Are having trouble breathing or shortness of breath Are unresponsiveImportant reminderCall your healthcare provider if you get a fever after visiting a place where infectious diseases arecommon. Many people fish bait picker a cold or other virus while traveling. This usually goes away without aproblem. But, some places have more serious diseases. Fever with certain other symptoms maymean you have a serious illness. Symptoms to watch for include diarrhea, skin rashes, insect bites,and skin boils, or infections. Your provider may ask you: What you did on your trip How long you were there Where you stayed (hotel, [place] house, tent) What you ate and drank If you were bitten by insects or other bugs If you swam in freshwater If you had sex or got a tattoo or piercing while you were thereCheck the [facility] to get more information about specific infectious diseases in the areas you havetraveled. [id number] [employer]. [address] [place] [address]. All rights reserved. 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 Always follow your healthcare professional's instructions. You have been given the fo uma additional information: Otitis Media, Antibiotic Treatment (Adult) Fever Control (Adult)(Electronically signed by Arturo Toscano M.D. 11/06/2019 07:01) Name Value Range Interpretation Code Description Data Eve rce(s) Supporting Document(s) ID Date Data Source [id number] 11/06/2019 06:33:00 AM EST [facility] 1 Clinical Report - Nurses [facility] Emergency Department [address] [place] [address] Phone #: ext- [phone] 11/06/2019 06:33 Patient: AMANDA BOUCHER Sex: F : 2000 Age: 19yTRIAGEArrived by private vehicle. Historian: patient. ( Pt woke up with right ear pain, did not take any meds).Acuity: LEVEL 4.Chief Complaint: RIGHT EAR PAIN.This started today.SEPSIS SCREEN: Negative (no infection suspected/documented). --06:38 11/06/19 Elías Toscano R.N.06:36 11/06/19. BP: 165/80. HR: 63. RR: 18. O2 saturation: 97%. Temp: 97.2 F. Pain level now 6/10.--06:38 11/06/19 Elías Toscano R.N.Weight: 79.7 kg. Height/Length: 65 inches. BMI: 29.3. --06:38 11/06/19 Elías Toscaon R.N.MedicationsNone. --06:37 11/06/19 Elías Toscano R.N.AllergiesNo Known Drug Allergy. --06:37 11/06/19 Elías Toscano R.N.HistoryPAST MEDICAL HX: Last normal menstrual period- 2 weeks.SOCIAL HX: Current every day smoker. Alcohol use; consumes beer occasionally. No drug use. Shehas not traveled outside the [place]Infectious disease exposure: No infectious disease exposure.SELF HARM ASSE SSMENT: Self harm assessment was performed. The patient answered "no" to thequestion(s) "Have you recently felt down, depressed, or hopeless?", "Do you have thoughts of harming orkilling yourself?", "Do you have a plan for harming or killing yourself?", "Have you recently had thoughtsabout harming or killing others?", "Do you have any dangerous items in your possession?", "Have younoticed less interest or pleasure in doing things?", "Are you here because you tried to hurt yourself?" and"Have you ever tried to hurt yourself before today?".ABUSE ASSESSMENT: Abuse assessment. Abuse denied.NUTRITIONAL RISK ASSESSMENT: The nutritional risk assessment revealed no deficiencies.FUNCTIONAL ASSESSMENT: Functional assessment: no impairments noted.LEARNING NEEDS ASSESSMENT: The learning needs assessment revealed no barriers. 2 Clinical Report - Nurses [facility] Emergency Department [address] [place] [address] Phone #: ext- [phone] 11/06/2019 06:33 Patient: AMANDA BOUCHER Sex: F : 2000 Age: 19y FALL RISK ASSESSMENT: Fall risk assessment completed. No risk factors identified. SKIN INTEGRITY ASSESSMENT: Skin integrity risk assessment completed. No skin integrity risk identified. --06:38 11/06/19 Elías Toscano R.N. Interventions Identification band on patient. To treatment room. --06:38 11/06/19 Elías Toscano R.N.PHYSICAL ASSESSMENT( Pt moaning in pain).GENERAL / NEURO / PSYCH: Alert. Appears in no acute distress.HEENT: No facial asymmetry noted. Pupils equal, round and reactive to light. EOM intact. Nares withinnormal limits. Pharynx within normal limits.RESPIRATORY: Respirations not labored.CVS: Capillary refill less than 2 seconds.SKIN: Skin is warm and dry. --06:40 11/06/19 Elías Toscano R.N.NURSING PROGRESS NOTESReassurance given to the patient. Two patient identifiers checked. Call light placed in reach. Bedplaced in lowest position. Brakes of bed on. --06:39 11/06/19 Elías Toscano R.N. 06:45 11/06/2019 Toradol (Ketorolac Tromethamine) IM 30 mg given. Given in the right deltoid. --06:45 11/06/19 Elías Toscano R.N. 06:45 11/06/2019 Ceftriaxone IM 1 gm given. Given in the right ventral gluteus. Allergies verified and confirmed 5 rights. Information reviewed with patient. --06:46 11/06/19 Elías Toscano R.N.DISPOSITION / DISCHARGE Condition at departure: improved. Learning barriers present. Reviewed medication(s). Prescription(s) sent electronically to pharmacy. Reviewed referral to a primary care physician. Patient verbalized understanding. Written instructions provided in Tristanian. The patient was discharged by the physician. She was discharged home. She left ambulatory and via private vehicle. Patient driving. --07:03 11/06/19 Elías Toscano R.N. 07:03 11/06/19. Pain level now 11/11. --07:03 11/06/19 Elías Toscano R.N.Locked/Rele ased at 11/06/2019 07:04 by Elías Toscano R.N. 3 Clinical Report - Nurses [facility] Emergency Department [address] [place] [address] Phone #: ext- [phone] 11/06/2019 06:33 Patient: AMANDA BOUCHER Sex: F : 2000 Age: 19y Name Value Range Interpretation Code Description Data Eve rce(s) Supporting Document(s) ID Date Data Source [id number] 11/06/2019 06:33:00 AM EST [facility] 1 Clinical Report - Physicians/Mid Levels [facility] Emergency Department [address] [place] [address] Phone #: ext- [phone] 11/06/2019 06:33 Patient: AMANDA BOUCHER Sex: F : 2000 Age: 19y Time Seen: 06:42 11/06/2019; initial patient contact. Arrived- By private vehicle. Historian- patient. Disposition decision: 06:49 11/06/2019.HISTORY OF PRESENT ILLNESS Chief Complaint: EARACHE. This started today and is still present. Onset during rest. Modifying factors. Not worsened by anything. Not relieved by anything. Location- right ear. The pain is described as severe. The patient has had severe right ear pain. No ear drainage, hearing loss, sinus pre ssure, complaint of foreign body in the ear or ear trauma. No recent barotrauma, tinnitus, sore throat, toothache or jaw pain. No facial pain. The patient has had mild nasal congestion and a mild nasal discharge. Similar symptoms previously. Patient has had similar symptoms once. Recent medical care: Not recently seen/assessed.REVIEW OF SYSTEMSNo fever, chills, cough, difficulty breathing or chest pain. No headache, eye discomfort, nausea, vomitingor diarrhea. No abdominal pain, difficulty with urination, skin rash, enlarged lymph nodes or joint pain.Has not had decreased oral intake. All other systems reviewed and are negative.PAST HISTORYSee nurses notes. Problems: Asthma. Depression. Medications: None. Allergies: No Known Drug Allergy.SOCIAL HISTORYCurrent every day smoker. Alcohol use; consumes beer occasionally. No drug use.ADDITIONAL NOTESThe nursing notes have been reviewed with agreement regarding the chief complaint, HPI, ROS, PMH andpatient medications and allergies.PHYSICAL EXAM 2 Clinical Report - Physicians/Mid Levels [facility] Emergency Department [address] [place] [address] Phone #: ext- [phone] 11/06/2019 06:33 Patient: AMANDA BOUCHER Sex: F : 2000 Age: 19y Vital Signs: 11/06/2019 06:36 BP: 165/80. MAP: 108. HR: 63. RR: 18. O2 saturation: 97%. Temp: 97.2 F. Have been reviewed. Oxygen saturation normal. Appearance: Anxious. Patient in mild distress. Distress appears due to pain. Eyes: Eyes normal inspection. Ear (left): Left ear normal. Left tympanic membrane normal. Ear (right): There is erythema, dullness and bulging of the tympanic membrane, fluid behind the tympanic membrane and loss of tympanic membrane landmarks. Right ear normal. Nose: Nose normal. Throat: Pharynx normal. Neck: Normal inspection. Neck supple. CVS: Normal heart rate and rhythm. Heart sounds normal. Respiratory: No respiratory distress. Painless inspiration. Breath sounds normal. Abdomen: Soft and nontender. Back: Normal inspection. : Normal genitalia. Skin: Skin warm and dry. Normal skin color. No rash. Normal s kin turgor. Extremities: Extremities exhibit normal ROM. No lower extremity edema. Neuro: Oriented X 3. No motor deficit. No sensory deficit.PROGRESS AND PROCEDURESCourse of Care: 06:52 11/06/19. will treat for acute OM (pt drove to ER by herself) and d/c accordingly. Patient counseled in person regarding the patient's stable condition, diagnosis and need for follow-up. Patient agrees with plan of care. Disposition: Condition: good and stable. Discharge decision based on the following: patient's condition is stable; patient's condition is improved; patient is ambulatory; patient is active; patient drinking fluids; patient's pain is controlled; patient's exam is improved; improving condition on repeat evaluation; social support is good; transportation is available; follow- up is available; clinical impression is consistent with outpatient treatment.CLINICAL IMPRESSION Acute suppurative right otitis media. No perforation of right tympanic membrane.INSTRUCTIONS Take Tylenol (Acetaminophen) or Motrin (Ibuprofen) for fever, temperature greater than 102 degrees orally. Take according to label instructions. Drink plenty of fluids. Do not smoke. No alcohol. Warnings: Further evaluation is necessary. It is very important to follow up with a healthcare provider. 3 Clinical Report - Physicians/Mid Levels [facility] Emergency Department [address] [place] [address] Phone #: ext- [phone] 11/06/2019 06:33 [id number] Sex: F : 2000 Age: 19y GENERAL WARNINGS: Return or contact your physician immediately if your condition worsens or changes unexpectedly, if not improving as expected, or if other problems arise. Specifically return if pain, vomiting, bleeding, breathing difficulty or fever greater than 102 degrees F and not controlled by acetaminophen or ibuprofen worsens. Your Current Medications: . No home medication. Prescription Medications: hydrocodone 5 mg-acetaminophen 325 mg tablet Take 1 tablet four times a day as needed for pain for 3 days -- Dispense 12 tablet. Refills: 0. Substitution permitted. [facility] [phone] [phone] ; [place] [address]. . Augmentin 875 mg-125 mg tablet Take 1 tablet twice a day for 10 days -- Dispense 20 tablet. Refills: 0. Substitution permitted. [facility] [phone] ; [place] [address]. . ibuprofen 600 mg tablet Take 1 tablet four times a day as needed for pain for 7 days -- Dispense 28 tablet. Refills: 0. Substitution permitted. [facility] [phone] ; [place] [address]. . Follow- up: Return to the emergency department as needed. Follow up with your healthcare provider in five days even if well. Call for an appointment. Reason for referra l: evaluation and treatment. Summary of care provided to patient via paper. Understanding of the discharge instructions verbalized by patient. Expected course of illness, discharge instructions, activity level, diet, prescriptions x3, follow-up appointment and risks and benefits of treatment reviewed with patient and understanding verbalized. Agrees to plan of care.(Electronically signed by Arutro Toscano M.D. 11/06/2019 07:01) Name Value Range Interpretation Code Description Data Eve rce(s) Supporting Document(s) Procedure Social History Code Duration Value Status Description Data Source(s ) Smoking 11/12/2020 12:00:00 AM EST Former Smoker completed Former Smoker eCW1 ([facility]) Smoking 11/12/2020 12:00:00 AM EST Former Smoker completed Former Smoker eCW1 ([facility]) Smoking 11/04/2020 12:00:00 AM EST Former Smoker completed Former Smoker eCW1 ([facility]) Smoking 10/28/2020 12:00:00 AM EST Former Smoker completed Former Smoker eCW1 ([facility]) Smoking 10/14/2020 12:00:00 AM EST Current Smoker completed Curre nt Smoker eCW1 ([facility]) Smoking 09/21/2020 12:00:00 AM EST Current Smoker completed Curre nt Smoker eCW1 ([facility]) Smoking 09/07/2020 12:00:00 AM EST Current Smoker completed Curre nt Smoker eCW1 ([facility]) Smoking 08/12/2020 12:00:00 AM EST Current Smoker completed Curre nt Smoker eCW1 ([facility]) Smoking 08/12/2020 12:00:00 AM EST Current Smoker completed Curre nt Smoker eCW1 ([facility]) Smoking 07/14/2020 12:00:00 AM EDT Current Smoker completed Curre nt Smoker eCW1 ([facility]) Vital Signs ID Date Data Source UNK Name Value Range Interpretation Code Description Data Source(s) Diastolic blood pressure 72 mm[Hg] 72 mm[Hg] eCW1 ([facility]) Systolic blood pressure 118 mm[Hg] 118 mm[Hg] e CW1 ([facility]) Body mass index (BMI) [Ratio] 42.268 kg/m2 42.2 68 kg/m2 eCW1 ([facility]) Body height 65 [in_i] 65 [in_i] eCW1 ([facility]) Body weight 115.21 kg 115.21 kg eCW1 ([facility]) Body weight 254.0 [lb_av] 254.0 [lb_av] [facility] Body height 65 [in_i] 65 [in_i] eCW1 ([facility]) Body weight 249 [lb_av] 249 [lb_av] eCW1 ([facility]) Diastolic blood pressure 80 mm[Hg] 80 mm[Hg] eCW1 ([facility]) Systolic blood pressure 122 mm[Hg] 122 mm[Hg] e CW1 ([facility]) Body mass index (BMI) [Ratio] 41.43 kg/m2 41.43 kg/m2 eCW1 ([facility]) Diastolic blood pressure 80 mm[Hg] 80 mm[Hg] eCW1 ([facility]) Systolic blood pressure 118 mm[Hg] 118 mm[Hg] e CW1 ([facility]) Body mass index (BMI) [Ratio] 40.77 kg/m2 40.77 kg/m2 eCW1 ([facility]) Body height 65 [in_i] 65 [in_i] eCW1 ([facility]) Body weight 245 [lb_av] 245 [lb_av] eCW1 ([facility]) Diastolic blood pressure 72 mm[Hg] 72 mm[Hg] eCW1 ([facility]) Systolic blood pressure 120 mm[Hg] 120 mm[Hg] e CW1 ([facility]) Body mass index (BMI) [Ratio] 40.271 kg/m2 40.2 71 kg/m2 eCW1 ([facility]) Body height 65 [in_i] 65 [in_i] eCW1 ([facility]) Body weight 109.77 kg 109.77 kg eCW1 ([facility]) Body weight 242.0 [lb_av] 242.0 [lb_av] eCW1 ([facility]) Diastolic blood pressure 78 mm[Hg] 78 mm[Hg] eCW1 ([facility]) Systolic blood pressure 114 mm[Hg] 114 mm[Hg] e CW1 ([facility]) Body mass index (BMI) [Ratio] 40.104 kg/m2 40.1 04 kg/m2 eCW1 ([facility]) Body height 65 [in_i] 65 [in_i] eCW1 ([facility]) Body weight 109.32 kg 109.32 kg eCW1 ([facility]) Body weight 241.0 [lb_av] 241.0 [lb_av] eCW1 ([facility]) Diastolic blood pressure 68 mm[Hg] 68 mm[Hg] eCW1 ([facility]) Systolic blood pressure 108 mm[Hg] 108 mm[Hg] e CW1 ([facility]) Body mass index (BMI) [Ratio] 39.372 kg/m2 39.3 72 kg/m2 eCW1 ([facility]) Body height 65 [in_i] 65 [in_i] eCW1 ([facility]) Body weight 107.32 kg 107.32 kg eCW1 ([facility]) Body weight 236.6 [lb_av] 236.6 [lb_av] eCW1 ([facility]) Diastolic blood pressure 72 mm[Hg] 72 mm[Hg] eCW1 ([facility]) Systolic blood pressure 102 mm[Hg] 102 mm[Hg] e CW1 ([facility]) Body mass index (BMI) [Ratio] 38.274 kg/m2 38.2 74 kg/m2 eCW1 ([facility]) Body height 65 [in_i] 65 [in_i] eCW1 ([facility]) Body weight 104.33 kg 104.33 kg eCW1 ([facility]) Body weight 230 [lb_av] 230 [lb_av] eCW1 ([facility]) Diastolic blood pressure 72 mm[Hg] 72 mm[Hg] eCW1 ([facility]) Systolic blood pressure 128 mm[Hg] 128 mm[Hg] e CW1 ([facility]) Body mass index (BMI) [Ratio] 36.41 kg/m2 36.41 kg/m2 eCW1 ([facility]) Body height 65 [in_i] 65 [in_i] eCW1 ([facility]) Body weight 218.8 [lb_av] 218.8 [lb_av] eCW1 ([facility]) Diastolic blood pressure 72 mm[Hg] 72 mm[Hg] eCW1 ([facility]) Systolic blood pressure 130 mm[Hg] 130 mm[Hg] e CW1 ([facility]) Body mass index (BMI) [Ratio] 33.448 kg/m2 33.4 48 kg/m2 eCW1 ([facility]) Body height 65 [in_i] 65 [in_i] eCW1 ([facility]) Body weight 201 [lb_av] 201 [lb_av] eCW1 ([facility]) Patient Treatment Plan of Care Planned Activity Planned Date Details Description Data Source (s) Omeprazole 40 MG Delayed Release Oral Capsule 07/15/2020 12:00:00 A M EDT eCW1 ([facility])
--- OUTSIDE RECORDS SUMMARY | 2020-11-18 11:23 | CCD ---
Author Author [facility] Organization [facility] Address Unknown Phone Unavailable Care Team Providers Care Laundry Supervisor Name Role Phone Viola Beltran Unavailable PROBLEMS Type Condition ICD9-CM Code [id number] Code Onset Dates Condition S tatus SNOMED Code Notes Problem Obesity E66.9 Active 022788465 Problem Obesity complicating in third trimester O99.21 3 Active Problem Supervision of other normal Z34.80 Ac tive 305558436 Problem Obesity complicating in second trimester O99.212 Active 132949244931 Problem GERD (gastroesophageal reflux disease) K21.9 A ctive 096065876 ALLERGIES Allergen (clinical drug ingredient) Drug/Non Drug Allergy do cumented on EMR Reaction Allergy Type Onset Date Status Tree nuts Unknown Non Drug Allergy Active Seasonal Unknown Non Drug Allergy Active ENCOUNTERS from 2000 to 2020-09-23 Encounter Location Date Provider Diagnosis [facility] [place] [address] Sep, Viola Beltran Obesity complicating in third trimester O99.213 ; 32 weeks gestation of Z3A.32 and Encounter for immunization Z23 IMMUNIZATIONS Vaccine Route Administration Date Status RHo [...] FOR REFERRAL No Information VITAL SIGNS Weight 241.0 lbs Sep, Weight-kg 109.32 kg Sep, Height 65 in Sep, BMI 40.104 kg/m2 Sep, Blood pressure systolic 114 mm Hg Sep, Blood pressure diastolic 78 mm Hg Sep, MEDICATIONS Medication SIG (Take, Route, Frequency, Duration) Notes Start Da te End Date Status Omeprazole 40 MG 1 capsule 30 minutes before morning meal Orally Once a day for 30 day(s) Jul, Active 27-1 MG 1 tablet Orally Once a day Active PROCEDURES from 2000 to 2020-09-23 Procedure Date Ordered Result Body Site Immunization: Boostrix 0.5mL IM (TDAP) 2020-09-22 N/A RESULTS No Results REASON FOR VISIT 2 WK PN MEDICAL (GENERAL) HISTORY Type Description Date Medical History asthma Medical History anxiety Medical History depression Surgical History wisdom teeth Hospitalization History pneumonia Goals Section No Information Health Concerns No Information MEDICAL EQUIPMENT No Information MENTAL STATUS No Information FUNCTIONAL STATUS No Information ASSESSMENTS Encounter Date Diagnosis Assessment Notes Treatment Notes Treatm ent Clinical Notes Sep, Obesity complicating pregnan cy in third trimester (ICD-10 - O99.213) Sep, 32 weeks gestation of (ICD-10 - Z3A.32 ) Sep, Encounter for immunization (ICD-10 - Z23) PLAN OF TREATMENT Treatment Notes Test Name Order Date [facility] OBS FOLLOW UP OR REPEAT 2020-09-23 Next Appt Details 2-4 Weeks Reason:PN Provider Name:Katharine Bennett, 2020-10-14 01:40:00 PM, [address] [place], [address], Follow Up:2-4 WeeksPN Insurance Providers Payer Name Payer Address Payer Phone Insured Name Patient Relati onship to Insured Coverage Start Date Coverage End Date [facility] COMMUNITY PLAN [facility] [address] [facility] [phone] AMANDA BOUCHER self
--- OUTSIDE RECORDS SUMMARY | 2020-11-18 11:23 | CCD ---
Author Author [facility] Organization [facility] Address Unknown Phone Unavailable Care Team Providers Care Documentation Supervisor Name Role Phone Viola Beltran Unavailable PROBLEMS Type Condition ICD9-CM Code [id number] Code Onset Dates Condition S tatus SNOMED Code Notes Problem GERD (gastroesophageal reflux disease) K21.9 A ctive 327872266 Problem Obesity E66.9 Active 080184373 Problem Supervision of other normal Z34.80 Ac tive 966230005 Problem Obesity complicating in second trimester O99.212 Active 450493603327 ALLERGIES Allergen (clinical drug ingredient) Drug/Non Drug Allergy do cumented on EMR Reaction Allergy Type Onset Date Status Tree nuts Unknown Non Drug Allergy Active Seasonal Unknown Non Drug Allergy Active ENCOUNTERS from 2000 to 2020-09-01 Encounter Location Date Provider Diagnosis [facility] [place] [address] Jul, Viola Beltran 22 weeks gestation o f Z3A.22 ; Obesity complicating in second trimester O99.212 ; Obesity E66.9 ; GERD (gastroesophageal reflux disease) K21.9 and Diseases of the digestive system complicating , second trimester O99.612 IMMUNIZATIONS No Information SOCIAL HISTORY Tobacco Use: [...] FOR REFERRAL No Information VITAL SIGNS Weight 218.8 lbs Jul, Height 65 in 14 Jul, 2020 BMI 36.41 kg/m2 Jul, Blood pressure systolic 128 mm Hg Jul, Blood pressure diastolic 72 mm Hg Jul, MEDICATIONS Medication SIG (Take, Route, Frequency, Duration) Notes Start Da te End Date Status 27-1 MG 1 tablet Orally Once a day Active Omeprazole 40 MG 1 capsule 30 minutes before morning meal Orally Once a day for 30 day(s) Jul, Active PROCEDURES No Information RESULTS Component Value Reference Range [facility] OBS FOLLOW UP OR REPEAT Reviewed date:07/21/2020 16:38:35 Interpretation: Performing Lab:[facility] [address] ,[place] [address] Type and Screen (D Rh Antibody Screen) Reviewed date:08/31/2020 07:53:45 Interpretation: Performing Lab:[facility] LABORATORY [address] [facility] [address] , ,[place] [address] BLOOD TYPE A NEGATIVE AB SCREEN (INDIRECT DOC)VIS NEGATIVE CBC - Complete Blood Count Reviewed date:08/31/2020 07:53:25 Interpretation: Performing Lab:[facility] LABORATORY [address] [facility] [address] , ,[place] [address] WHITE BLOOD COUNT 13.6 4.0-10.0 RED BLOOD COUNT 3.93 4.00-5.40 HEMOGLOBIN 12.2 12.0-15.5 HEMATOCRIT 36.5 36.0-47.0 MEAN CORPUSCULAR VOLUME 92.9 80.0-96.0 MEAN CORPUSCULAR HEMOGLOBIN 31.0 27.0-33.0 MEAN CORPUSCULAR HGB CONC 33.4 32.0-36.5 RED CELL DISTRIBUTION WIDTH 12.1 11.5-14.5 PLATELET COUNT, AUTOMATED 315 150-450 Glucose Challenge Test 1 Hour Reviewed date:08/31/2020 07:53:31 Interpretation: Performing Lab:[facility] LABORATORY [address] [facility] [address] , ,[place] [address] GLUCOSE CHALLENGE TEST 1 HOUR 107 LESS THAN 140 RHOGAM Reviewed date:08/31/2020 07:53:54 Interpretation: Performing Lab:[facility], [place] [address] RHOGAM TRANSFUSED PRODUCT: RHOGAM COUNT: 1 REASON FOR VISIT 4WK PN MEDICAL (GENERAL) HISTORY Type Description Date Medical History asthma Medical History anxiety Medical History depression Surgical History wisdom teeth Hospitalization History pneumonia Goals Section No Information Health Concerns No Information MEDICAL EQUIPMENT No Information MENTAL STATUS No Information FUNCTIONAL STATUS No Information ASSESSMENTS Encounter Date Diagnosis Assessment Notes Treatment Notes Treatm ent Clinical Notes Jul, 22 weeks gestation of (ICD-10 - Z3A.22 ) Jul, Obesity complicating pregnan cy in second trimester (ICD-10 - O99.212) Jul, Obesity (ICD-10 - E66.9) Jul, GERD (gastroesophageal reflux disease) (ICD-10 - K21.9) Jul, Diseases of the digestive sy stem complicating , second trimester (ICD-10 - O99.612) PLAN OF TREATMENT Next Appt Details 4 Weeks Reason:PN Provider Name:Katharine Robleselda, 2020-09-10 02:40:00 PM, [address] [place], [address], Follow Up:4 WeeksPN Insurance Providers Payer Name Payer Address Payer Phone Insured Name Patient Relati onship to Insured Coverage Start Date Coverage End Date REPLACED BY [facility] COMMUN[facility] PLAN [facility] [address] [facility] [phone] AMADNA BOUCHER self
--- OUTSIDE RECORDS SUMMARY | 2020-11-18 11:23 | CCD ---
Author Author [facility] Organization [facility] Address Unknown Phone Unavailable Care Team Providers Care Chicken Raiser Name Role Phone Viola Beltran Unavailable PROBLEMS Type Condition ICD9-CM Code [id number] Code Onset Dates Condition S tatus W/U Status Risk SNOMED Code Notes Problem Obesity E66.9 Active confirmed 781844620 Problem Obesity complicating in third trimester O99.213 Active confirmed Problem Supervision of other normal Z34.80 Ac tive confirm 523413372 Problem Obesity complicating in second trimester O99.212 Active confirmed 270223444571 Problem GERD (gastroesophageal reflux disease) K21.9 A ctive confirmed 620404840 ALLERGIES Allergen (clinical drug ingredient) Drug/Non Drug Allergy do cumented on EMR Reaction Allergy Type Onset Date Status Tree nuts Unknown Non Drug Allergy Active Seasonal Unknown Non Drug Allergy Active ENCOUNTERS from 2000 to 2020-11-06 Encounter Location Date Provider Diagnosis [facility] [address] [place] [address] Oct, Viola Beltran 37 weeks gestation o f Z3A.37 ; Obesity complicating in third trimester O99.213 and Obesity E66.9 IMMUNIZATIONS Vaccine Route Administration Date Status RHo [...] FOR REFERRAL No Information VITAL SIGNS Weight 249 lbs Oct, Height 65 in Oct, BMI 41.43 kg/m2 Oct, Blood pressure systolic 122 mm Hg Oct, Blood pressure diastolic 80 mm Hg Oct, MEDICATIONS Medication SIG (Take, Route, Frequency, Duration) Notes Start Da te End Date Status Omeprazole 40 MG 1 capsule 30 minutes before morning meal Orally Once a day for 30 day(s) Jul, Active 27-1 MG 1 tablet Orally Once a day Active PROCEDURES No Information RESULTS No Results [...] Notes Treatment Notes Treatm ent Clinical Notes Oct, 37 weeks gestation of (ICD-10 - Z3A.37 ) Oct, Obesity complicating pregnan cy in third trimester (ICD-10 - O99.213) Oct, Obesity (ICD-10 - E66.9) PLAN OF TREATMENT Next Appt Details 1 Week Reason:PN Provider Name:Osmany Matos, 2020-11-06 02:20:00 PM, [address] [place], [address], Follow Up:1 WeekPN Insurance Providers Payer Name Payer Address Payer Phone Insured Name Patient Relati onship to Insured Coverage Start Date Coverage End Date [facility] COMMUNITY PLAN [facility] [address] [facility] [phone] AMANDA OBUCHER self
--- OUTSIDE RECORDS SUMMARY | 2020-11-18 11:23 | CCD ---
Author Author [facility] Organization [facility] Address Unknown Phone Unavailable Care Team Providers Care Charter Coach Driver Name Role Phone Viola Beltran Unavailable PROBLEMS Type Condition ICD9-CM Code [id number] Code Onset Dates Condition S tatus W/U Status Risk SNOMED Code Notes Problem Obesity E66.9 Active confirmed 730837824 Problem Obesity complicating in third trimester O99.213 Active confirmed Problem Supervision of other normal Z34.80 Ac tive confirm 364292358 Problem Obesity complicating in second trimester O99.212 Active confirmed 190964841334 Problem GERD (gastroesophageal reflux disease) K21.9 A ctive confirmed 203841792 ALLERGIES Allergen (clinical drug ingredient) Drug/Non Drug Allergy do cumented on EMR Reaction Allergy Type Onset Date Status Tree nuts Unknown Non Drug Allergy Active Seasonal Unknown Non Drug Allergy Active ENCOUNTERS from 2000 to 2020-11-02 Encounter Location Date Provider Diagnosis [facility] [address] [place] [address] Oct, Viola Beltran 36 weeks gestation o f Z3A.36 ; Obesity complicating in third trimester O99.213 [...] FOR REFERRAL No Information VITAL SIGNS Weight 245 lbs Oct, Height 65 in Oct, BMI 40.77 kg/m2 Oct, Blood pressure systolic 118 mm Hg Oct, Blood pressure diastolic 80 [...] Treatment Notes Treatm ent Clinical Notes Oct, 36 weeks gestation of (ICD-10 - Z3A.36 ) Oct, Obesity complicating pregnan cy in third trimester (ICD-10 - O99.213) Oct, Obesity (ICD-10 - E66.9) PLAN OF TREATMENT Next Appt Details 1 Week Reason:PN Provider Name:Osmany Matos, 2020-11-06 02:20:00 PM, [address] [place], [address], Follow Up:1 WeekPN Insurance Providers Payer Name Payer Address Payer Phone Insured Name Patient Relati onship to Insured Coverage Start Date Coverage End Date [facility] COMMUNITY PLAN [facility] [address] [facility] [phone] AMANDA BOUCHER self
--- OUTSIDE RECORDS SUMMARY | 2020-11-18 11:23 | CCD ---
Author Author [facility] Organization [facility] Address Unknown Phone Unavailable Care Team Providers Care Starting Gate Driver Name Role Phone Katharine Bennett Unavailable PROBLEMS Type Condition ICD9-CM Code [id number] Code Onset Dates Condition S tatus SNOMED Code Notes Problem Obesity E66.9 Active 774350315 Problem Obesity complicating in third trimester O99.21 3 Active Problem Supervision of other normal Z34.80 Ac tive 147476593 Problem Obesity complicating in second trimester O99.212 Active 709348005361 Problem GERD (gastroesophageal reflux disease) K21.9 A ctive 460127967 ALLERGIES Allergen (clinical drug ingredient) Drug/Non Drug Allergy do cumented on EMR Reaction Allergy Type Onset Date Status Tree nuts Unknown Non Drug Allergy Active Seasonal Unknown Non Drug Allergy Active ENCOUNTERS from 2000 to 2020-10-20 Encounter Location Date Provider Diagnosis [facility] [place] [address] Oct, Katharine Bennett 35 weeks gestatio n of Z3A.35 and Obesity complicating in third trimester O99.213 IMMUNIZATIONS Vaccine Route [...] FOR REFERRAL No Information VITAL SIGNS Weight 242.0 lbs Oct, Weight-kg 109.77 kg Oct, Height 65 in Oct, BMI 40.271 kg/m2 Oct, Blood pressure systolic 120 mm Hg Oct, Blood pressure diastolic 72 mm Hg Oct, MEDICATIONS Medication SIG (Take, Route, Frequency, Duration) Notes Start Da te End Date Status Omeprazole 40 MG 1 capsule 30 minutes before morning meal Orally Once a day for 30 day(s) Jul, Active 27-1 MG 1 tablet Orally Once a day Active PROCEDURES No Information RESULTS No Results REASON FOR VISIT 2 [...] Treatment Notes Treatm ent Clinical Notes Oct, 35 weeks gestation of (ICD-10 - Z3A.35 ) Oct, Obesity complicating pregnan cy in third trimester (ICD-10 - O99.213) PLAN OF TREATMENT Next Appt Details 1 Week Reason:return ob Provider [facility], 2020-10-21 11:00:00 AM, [address] [place], [address], Follow Up:1 Weekreturn ob Insurance Providers Payer Name Payer Address Payer Phone Insured Name Patient Relati onship to Insured Coverage Start Date Coverage End Date [facility] COMMUNITY PLAN [facility] [address] [facility] [phone] AMANDA BOUCHER self
[2020-11-18] MEDS ORDERED: PRENTAB9 PO (11:30)
[2020-11-18] MEDS ORDERED: ACET-897 PO (11:31)
[2020-11-18] MEDS ORDERED: LR 1,000 ML IV SCH (11:48)
[2020-11-18] MEDS ORDERED: OXYTOCIN DRIP 30 UNITS in IV 1 EA IV SCH ×2 (12:00→16:03)
--- NOTE | 2020-11-18 12:36 | HPE ---
HISTORY AND PHYSICAL DATE OF ADMISSION: 11/18/2020 HISTORY OF PRESENT ILLNESS: Aileen is a 20-year-old 2, para 1-0-0-1, at 40 weeks and 5 days with an estimated date of confinement (EDC) of 11/13/2020 based on first trimester ultrasound. She presents to labor and delivery today for induction of labor due to postterm . She does report that she has had some contractions that have been mildly uncomfortable since 2300 last evening. They seem to be approximately 5-6 minutes apart at this time. She denies bleeding or leakage of fluid. The fetus has been active. [facility] in the first trimester. course complicated by obesity. OBSTETRIC HISTORY: April 25, 2019, 7 pound 9 ounce female, spontaneous vaginal delivery, 40 weeks and 3 days. OBSTETRIC LABORATORIES: A negative, antibody screen negative. Syphilis negative. Gonorrhea and chlamydia negative. Hepatitis B surface antigen negative. Hepatitis C antibody nonreactive. HIV nonreactive. Rubella immune. Urine culture and sensitivity no growth. Gestational diabetic screening normal at 107 and her group B Streptococcus (GBS) is negative. PAST MEDICAL HISTORY: 1. Asthma. 2. Anxiety. 3. Depression. 4. Childhood varicella. 5. Pneumonia. SURGERIES: [place] teeth extraction. FAMILY HISTORY: Diabetes, breast cancer. SOCIAL HISTORY: She is single. Her partner is at bedside. She is a nonsmoker. She denies alcohol and drug use. She does have a history of sexually transmitted infection of chlamydia in the past. She does deny history of abuse, physical, sexual and emotional. ALLERGIES: SEASONAL, TREE NUTS. CURRENT MEDICATIONS: - vitamins OBJECTIVE: Complete set of vital signs have yet to be recorded; however, her blood pressure is 128/73, pulse 113. She appears comfortable, smiling and talkative. heart rate is 140 with moderate variability, positive accelerations, negative decelerations. Contractions are every 2-4 minutes. They do palpate mild. ABDOMEN: Gravid. Cephalic presentation by Kevin's maneuvers. Estimated weight 8 pounds. STERILE VAGINAL EXAM: 5 cm dilated, 80% effaced, -2 station, posterior, very soft. Mild, scant show with the exam. ASSESSMENT: Intrauterine at 40 and 5/7 weeks. heart rate category one. Postterm . PLAN: Admit patient to labor and delivery. Routine laboratories. Out of bed ad patricia. Clear liquid diet. Plan to start intravenous (IV) Pitocin for labor induction. I did review risks, benefits and alternatives with the patient. All of her questions have been answered. She has been verbally consented for emergency surgery and blood products if they are necessary. I do anticipate an active labor and a spontaneous vaginal delivery.
[2020-11-18 12:41] LABS: HEMATOCRIT 36.1 % (36.0-47.0); HEMOGLOBIN 11.7 g/dl (12.0-15.5); MEAN CORPUSCULAR HGB CONC 32.4 g/dl (32.0-36.5); MEAN CORPUSCULAR VOLUME 89.4 fl (80.0-96.0); PLATELET COUNT, AUTOMATED 324 10^3/uL (150-450); RED BLOOD COUNT 4.04 10^6/uL (4.00-5.40); WHITE BLOOD COUNT 11.4 10^3/uL (4.0-10.0)
[2020-11-18 15:05] LABS: AMPHETAMINES URINE REFLEX NEGATIVE (NEGATIVE); BARBITURATES URINE REFLEX NEGATIVE (NEGATIVE); BENZODIAZEPINES URINE REFLEX NEGATIVE (NEGATIVE); COCAINE METABOLITE URINE REFLE NEGATIVE (NEGATIVE); METHADONE URINE REFLEX NEGATIVE (NEGATIVE); OPIATES URINE REFLEX NEGATIVE (NEGATIVE); PHENCYCLIDINE URINE REFLEX NEGATIVE (NEGATIVE)
[2020-11-18 15:12] LABS: CANNABINOIDS URINE REFLEX PENDING CONFIRMATION (NEGATIVE)
[2020-11-18] MEDS ORDERED: RHOGAM 300 MCG (1500 IU) INJ (J2790) IM SCH (16:15)
[2020-11-18] MEDS ORDERED: BENZOCAINE 20% HEMORRHOIDAL OINTMENT 28GM TUBE TOP PRN (16:15)
[2020-11-18] MEDS ORDERED: LIDOCAINE 1% MDV 20ML VIAL INFIL ONE (16:15)
[2020-11-18] MEDS ORDERED: DOCUSATE SODIUM 100MG CAPSULE PO PRN (16:15)
[2020-11-18] MEDS ORDERED: IBUPROFEN 600MG TAB PO PRN (16:15)
[2020-11-18] MEDS ORDERED: METHYLERGONOVINE MALEATE 0.2 MG TAB PO PRN (16:15)
[2020-11-18] MEDS ORDERED: ACETAMINOPHEN TAB 650MG DOSE (2X325MG) PO PRN (16:15)
[2020-11-18] MEDS ORDERED: MEASLES,MUMPS,RUBELLA VACCINE INJ (MMR-II) (90707) SC SCH (16:15)
[2020-11-18] MEDS ORDERED: ACETAMINOPHEN 500 MG TAB PO PRN (16:15)
[2020-11-18] MEDS: IBUPROFEN 800 MG TAB PO PRN (16:48)
--- NOTE | 2020-11-18 19:29 | DN ---
DELIVERY NOTE DATE OF DELIVERY: 11/18/2020 TIME OF : GENDER: Female. APGARS: 9 and 10. LACERATIONS: Second-degree midline. ANESTHESIA: ESTIMATED BLOOD LOSS: 450 mL. COUNTS: Corrected and verified. DESCRIPTION OF DELIVERY: Aileen is a 2, para 2-0-0-2 now who was admitted for induction of labor due to postterm . IV Pitocin was started and labor ensued. She coped with her labor physiologically. She progressed quickly. Pitocin at 4 mIU/min. She had assisted rupture of membranes at 1505 for a small amount of clear odorless fluid. She reached complete dilation at 1525. She pushed to a normal spontaneous vaginal delivery of a live female in occiput anterior (OA) position with restitution to right occiput transverse (ROT) position. There as no nuchal cord. She shoulders delivered with gentle downward traction and the corpus immediately followed. The 's mouth and nares were bulb suctioned, and she was placed on the maternal abdomen crying and active. Cord blood was obtained. Cord was clamped x2 once pulsations ceased and cut by the father of the baby under my direction. Spontaneous expulsion of an intact placenta with three-vessel cord by Sierra mechanism was at 1536. Uterine hemostasis achieved with IV Pitocin rapid infusion and uterine fundal massage. Estimated blood loss 450 mL. Perineum and vagina inspected and noted to have a second-degree midline laceration. The laceration was infiltrated with 1% Lidocaine and repaired with 3-0 Vicryl Rapide in the usual fashion. [place] female weighed 4020 grams (8 pounds 14 ounces). 9 and 10. Family have named their daughter Zahira, and they are going to bottle feed. At the close of delivery, lap counts, needle counts, and instrument counts were correct and verified.
[2020-11-19] MEDS: IBUPROFEN 800 MG TAB PO PRN (02:32)
[2020-11-19 05:58] VITALS: BP 140/66
[2020-11-19] MEDS: PRENATAL VITAMINS CHEWABLE TABLET PO SCH (08:30)
[2020-11-19 18:00] VITALS: BP 130/61
[2020-11-20] MEDS: IBUPROFEN 800 MG TAB PO PRN (05:11)
[2020-11-20 05:44] VITALS: BP 102/63
[2020-11-20] MEDS ORDERED: IBUP80TA PO (06:59)
[2020-11-20] MEDS: PRENATAL VITAMINS CHEWABLE TABLET PO SCH (09:34)
[2020-11-22 20:06] LABS: Cannabinoid Positive (.); GC Carboxy THC >300 ng/mL (Cutoff=10)
== END 2020-11-20 13:00 | disposition home or self-care (01) | DRG 560 ==
LOC: M LDI 11:17 → M OBS 17:59
PROVIDERS: ADMIT Advanced Practice Midwife; ATTEND Advanced Practice Midwife
PROC: 10E0XZZ Delivery of Products of Conception, External Approach (ICD-10-PCS; principal; 2020-11-18)
PROC: 3E033VJ Introduction of Other Hormone into Peripheral Vein, Percutaneous Approach (ICD-10-PCS; 2020-11-18)
PROC: 0KQM0ZZ Repair Perineum Muscle, Open Approach (ICD-10-PCS; 2020-11-18)
PROC: 10907ZC Drainage of Amniotic Fluid, Therapeutic from Products of Conception, Via Natural or Artificial Opening (ICD-10-PCS; 2020-11-18)
DX: O48.0 Post-term pregnancy (principal); Z3A.40 40 weeks gestation of pregnancy; Z37.0 Single live birth; O70.1 Second degree perineal laceration during delivery

== ENCOUNTER → 2022-08-29 | Outpatient (REF) ==
[~2022-08-29] MED LIST changes: +ACET-897 PO; +IBUP80TA PO; +PRENTAB9 PO
== END ==
LOC: M EMP 12:46
PROVIDERS: ATTEND Family Medicine
DX: Z20.822 Contact with and (suspected) exposure to COVID-19 (principal)

== ENCOUNTER → 2022-09-05 | Outpatient (REF) | LOC: M EMP 14:52 | PROVIDERS: ATTEND Family Medicine | DX: Z20.822 Contact with and (suspected) exposure to COVID-19 (principal) ==

== ENCOUNTER → 2022-09-12 | Outpatient (REF) | LOC: M EMP 14:05 | PROVIDERS: ATTEND Family Medicine | DX: Z11.52 Encounter for screening for COVID-19 (principal) ==

== ENCOUNTER → 2022-09-20 | Outpatient (REF) ==
[2022-09-20 17:12] LABS: RSV AMPLIFICATION NEGATIVE (NEGATIVE)
== END ==
LOC: M EMP 13:33
PROVIDERS: ATTEND Family Medicine
DX: Z20.818 Contact with and (suspected) exposure to other bacterial communicable diseases (principal)

== ENCOUNTER → 2022-09-28 | Outpatient (REF) | LOC: M EMP 15:07 | PROVIDERS: ATTEND Family Medicine | DX: Z11.52 Encounter for screening for COVID-19 (principal) ==

== ENCOUNTER 2022-11-04 00:35 | Emergency (ER) | payer OTHER ==
[~2022-11-04] VITALS: Ht 165.1 cm; Wt 92.7 kg
[2022-11-04 00:36] VITALS: BP 128/72
[2022-11-04] MEDS ORDERED: VENTAER INH ×2 (00:43→01:08)
[2022-11-04] MEDS ORDERED: PRED20TA PO (01:05)
[2022-11-04] MEDS ORDERED: ALBUTEROL 90 MCG/ACT 8GM HFA INHALER INH ONE (01:05)
[2022-11-04] MEDS ORDERED: diphenhydrAMINE 25MG CAP PO ONE (01:05)
[2022-11-04] MEDS ORDERED: predniSONE 20 MG TAB PO ONE (01:05)
== END 2022-11-04 01:30 | disposition home or self-care (01) ==
LOC: M ED 00:35
DX: T78.05XA Anaphylactic reaction due to tree nuts and seeds, initial encounter (principal); J45.909 Unspecified asthma, uncomplicated; F17.200 Nicotine dependence, unspecified, uncomplicated; F12.10 Cannabis abuse, uncomplicated; Z91.010 Allergy to peanuts; Z79.52 Long term (current) use of systemic steroids; Z79.02 Long term (current) use of antithrombotics/antiplatelets
CPT/HCPCS: 99283; J7512

== ENCOUNTER 2023-01-17 22:02 | Emergency (ER) | payer OTHER ==
[~2023-01-17] VITALS: Ht 165.1 cm; Wt 90.9 kg
[~2023-01-17 22:02] MED LIST changes: +VENTAER INH
[2023-01-18 04:32] VITALS: BP 126/67
== END 2023-01-18 04:34 | disposition home or self-care (01) ==
LOC: M ED 22:02
DX: S93.411A Sprain of calcaneofibular ligament of right ankle, initial encounter (principal); W01.0XXA Fall on same level from slipping, tripping and stumbling without subsequent striking against object, initial encounter; Z91.018 Allergy to other foods; Z79.52 Long term (current) use of systemic steroids; Z79.899 Other long term (current) drug therapy

== ENCOUNTER 2024-10-24 15:15 | Outpatient (RCR) | payer OTHER | END 2024-11-01 | LOC: M PT 15:15 | PROVIDERS: ATTEND Orthopaedic Surgery | DX: S82.892D Other fracture of left lower leg, subsequent encounter for closed fracture with routine healing (principal) ==